=== PATIENT | male | born 1990 | race Hispanic/Latino ===

== ENCOUNTER 2025-01-31 21:37 | Emergency (ER) | payer SELFPAY ==
[~2025-01-31] VITALS: Ht 193 cm; Wt 87.5 kg
[2025-01-31 22:22] LABS: IMMATURE GRANULOCYTE ABSOLUTE 0.02 K/uL (0-1); NUCLEATED RED BLOOD CELLS 0.0 % (0.0-0.19); PLATELET COUNT (AUTO) 327 K/uL (130-400); RED BLOOD CELL COUNT(AUTO) 5.34 MIL/uL (4.50-6.20); RED CELL DISTRIBUTION WIDTH 12.5 % (11.0-15.5); WHITE BLOOD COUNT (AUTO) 11.1 K/uL (4.8-10.8)
[2025-01-31 22:24] LABS: APPEARANCE,URINE CLEAR (CLEAR); GLUCOSE, URINE (UA) NEGATIVE (NEGATIVE); LEUKOCYTE ESTERASE ,URINE NEGATIVE Leu/uL (NEGATIVE); NITRATE,URINE NEGATIVE (NEGATIVE); OCCULT BLOOD,URINE NEGATIVE (NEGATIVE)
[2025-01-31 22:25] LABS: ADD UA MICROSCOPIC NO
[2025-01-31 22:36] LABS: CREATININE 1.1 mg/dL (0.5-1.3); GLOMERULAR FILTR. RATE CALC 89.0 mL/min (>90); GLUCOSE,RANDOM 78.0 mg/dL (70-105); SODIUM SERUM 144.0 mmol/L (136-145); UREA NITROGEN, BLOOD 9.0 mg/dL (7-18)
[2025-01-31 22:37] LABS: INR 1.0 (0.85-1.15)
[2025-01-31 22:42] LABS: ALCOHOL, BLOOD 57.0 mg/dL (0-10); ASPARTATE AMINOTRANSFERASE 26.0 U/L (10-37); CREATINE KINASE, TOTAL 127.0 U/L (21-232); TOTAL PROTEIN, SERUM 7.9 g/dL (6.0-8.3)
[2025-01-31] MEDS ORDERED: IOHEXOL-350 75 ML VIAL IV ONE (23:08)
[2025-01-31] MEDS: LACTATED RINGERS 1000ML 1,000 ML IV ONE (23:08)
--- NOTE | 2025-01-31 23:37 | HMCIMG ---
EXAM: CT Head Without IV contrast. CLINICAL HISTORY: Patient presents with a headache. TECHNIQUE: Axial computed tomography images of the head/brain without intravenous contrast. COMPARISON: None provided. FINDINGS: BRAIN: No evidence of acute hemorrhage, mass lesion, or acute territorial infarct. No midline shift or extra-axial collections. VENTRICLES: No hydrocephalus. ORBITS: The orbits are unremarkable. SINUSES AND MASTOIDS: Mucosal disease in the left maxillary, left sphenoid, and bilateral frontal sinuses. The remaining visualised paranasal sinuses and mastoid air cells are clear. BONES: No fracture. SOFT TISSUES: Unremarkable. IMPRESSION: No acute intracranial abnormality. /[place]
--- NOTE | 2025-02-01 | HMCIMG ---
EXAM: CT Abdomen and Pelvis with IV contrast. CLINICAL HISTORY: Pain. TECHNIQUE: Thin collimated axial CT images of the abdomen and pelvis were obtained, with sagittal and coronal reformatted images also submitted. A CT scan is done according to ALARA (As Low As Reasonably Achievable). COMPARISON: None. FINDINGS: Unremarkable visualized lung parenchyma. There is no focal abnormality appreciated within the liver, gallbladder, pancreas, spleen, adrenals, or kidneys. There is no obvious bowel wall thickening. Bowel loops are normal in caliber without evidence of obstruction or ileus. The appendix is unremarkable. There is no abnormality within the urinary bladder. Unremarkable reproductive organs. No lymphadenopathy. No free fluid. No pneumoperitoneum. No gross abnormality in the abdominal vessels. There is no acute osseous abnormality. IMPRESSIONS: No acute process in the abdomen or pelvis. /[place]
--- NOTE | 2025-02-01 00:24 | ERN ---
General Chief Complaint: Hematemesis/Vomiting Blood Stated Complaint: C/O VOMITING BLOOD WITH HEADACHE Time Seen by MD: 21:39 History of Present Illness Initial Comments 34-year-old male presents for headache and hematemesis. Patient reports that earlier today he began having a headache. Afterwards he vomited a couple of times. He reports that there was bright red blood in the vomit. Denies any abdominal pain or melena. Denies any GI symptoms. He has otherwise been in his normal state of health. He denies any medical conditions. Does report that he has a very heavy daily drinker. Allergies: Coded Allergies: No Known Allergies (Unverified Allergy, Unknown, 01/31/25) Past Medical History Past Medical History: No Pertinent History Past Surgical History: None ROS Dictation CONSTITUTIONAL: No chills, no fever, no weakness, no diaphoresis, no malaise. HEAD/FACE: No signs of trauma. EENT: No eye pain, no blurred vision, no tearing, no double vision, no ear pain, no ear discharge, no nose pain, no nasal congestion, no throat pain, no throat swelling, no mouth pain. RESPIRATORY: No cough, no orthopnea, no SOB, no stridor, no wheezing. CARDIOVASCULAR: No chest pain, no edema, no palpitations, no syncope. GASTROINTESTINAL/ABDOMINAL: Hematemesis GENITOURINARY: No abnormal discharge, no dysuria, no frequent urination, no hematuria. No complaints of pain in the genitals. MUSCULOSKELETAL: No back pain, no gout, no joint pain, no joint swelling, no muscle pain, no muscle stiffness, no neck pain. INTEGUMENTARY: No change in color, no change in hair/nails, no dryness, no lesion, no lumps, no rash. NEUROLOGICAL/PSYCH: No anxiety, not depressed, no emotional problem, no headache, no numbness, no pre-existing deficit, no history of seizures, no tremors, no weakness. HEMATOLOGIC/LYMPHATIC: Not anemic, no history of blood clots, no apparent bleeding, no bruising, glands not swollen. All Systems Negative, Except as Noted. Physical Exam Physical Exam Dictation VITAL SIGNS: Reviewed. GENERAL APPEARANCE: Alert, oriented x3, no acute distress. HEAD AND FACE: Non-traumatic. EYES: PERRL, pink conjunctivas, eyelid no trauma, anterior chamber clear. EARS: Pinnas intact and no signs of trauma or erythema. Ear canals clear and no discharge. TMs no erythema. NOSE: No discharge, no bleeding. OROPHARYNX: Mouth normal, teeth no caries, tongue pink. Pharynx clear, no erythema. Tonsils no exudates, no abscesses noted. Mucous membrane moist. NECK: Supple, non-tender, no thyromegaly, no masses, no JVD, no bruits. BREAST: Deferred. CHEST: No tenderness, no crepitus, no paradoxical movement, no retractions. LUNGS: Clear, well-ventilated, symmetric, no rales, no wheezing, no rhonchi, no stridor, good breath sounds bilaterally. HEART: Regular rate, regular rhythm, no murmur, no gallops. VASCULAR: No peripheral edema. ABDOMEN: Soft, positive bowel sounds, nondistended, no guarding, nontender, no rebound, no masses no hepatomegaly, no splenomegaly, no Real's sign, no hernias. RECTAL: Deferred. GENITAL: Deferred. NEUROLOGICAL: Normal speech, gross motor function intact, gross sensory function intact. MUSCULOSKELETAL: Neck nontender, full range of motion, back nontender, full range of motion. EXTREMITIES: Nontender, full range of motion. SKIN: Color pink, dry, no turgor, no rash, no lacerations, no abrasions, no contusions. LYMPHATICS: Deferred. Results Laboratory and Microbiology Lab and Micro Result Laboratory Tests Test 01/31/25 22:12 White Blood Count 11.1 K/uL (4.8-10.8) H Red Blood Count 5.34 MIL/uL (4.50-6.20) Hemoglobin 15.8 g/dL (14.0-18.0) Hematocrit 46.1 % (42-54) Mean Corpuscular Volume 86.3 fL (79-99) Mean Corpuscular Hemoglobin 29.6 pg (27.0-33.0) Mean Corpuscular Hemoglobin Concent 34.3 g/dL (32.0-36.0) Red Cell Distribution Width 12.5 % (11.0-15.5) Platelet Count 327 K/uL (130-400) Mean Platelet Volume 9.6 fL (7.5-10.5) Immature Granulocyte % (Auto) 0.2 % (0-1) Neutrophils (%) (Auto) 74.5 % (40.0-77.0) Lymphocytes (%) (Auto) 15.4 % (21.0-51.0) L Monocytes (%) (Auto) 8.6 % (3.0-13.0) Eosinophils (%) (Auto) 1.0 % (0.0-8.0) Basophils (%) (Auto) 0.3 % (0.0-5.0) Neutrophils # (Auto) 8.3 K/uL (1.8-7.7) H Lymphocytes # (Auto) 1.7 K/uL (1.0-4.8) Monocytes # (Auto) 1.0 K/uL (0.1-1.0) Eosinophils # (Auto) 0.11 K/uL (0.00-0.70) Basophils # (Auto) 0.03 K/uL (0.00-0.20) Absolute Immature Granulocyte (auto 0.02 K/uL (0-1) Nucleated Red Blood Cells 0.0 % (0.0-0.19) Prothrombin Time 10.6 SEC (9.6-11.6) Prothromb Time International Ratio 1.00 (0.85-1.15) Activated Partial Thromboplast Time 28.5 SEC (26.3-35.5) Urine Color COLORLESS (YELLOW) Urine Appearance CLEAR (CLEAR) Urine pH 6.5 (5.0-8.0) Urine Specific [place] 1.005 (1.001-1.031) Urine Protein NEGATIVE mg/dL (NEGATIVE) Urine Glucose (UA) NEGATIVE mg/dL (NEGATIVE) Urine Ketones NEGATIVE mg/dL (NEGATIVE) Urine Occult Blood NEGATIVE (NEGATIVE) Urine Nitrate NEGATIVE (NEGATIVE) Urine Bilirubin NEGATIVE mg/dL (NEGATIVE) Urine Urobilinogen 0.2 mg/dL (0.2-1.0) Urine Leukocyte Esterase NEGATIVE Andrew/uL Sodium Level 144 mmol/L (136-145) Potassium Level 3.7 mmol/L (3.5-5.1) Chloride Level 103 mmol/L (101-111) Carbon Dioxide Level 31 mmol/L (21-32) Blood Urea Nitrogen 9 mg/dL (7-18) Creatinine 1.1 mg/dL (0.5-1.3) Glomerular Filtration Rate Calc 89 mL/min (>90) Random Glucose 78 mg/dL (70-105) Total Calcium 8.8 mg/dL (8.5-10.1) Total Bilirubin 0.6 mg/dL (0.2-1.0) Direct Bilirubin 0.1 mg/dL (0.0-0.3) Aspartate Amino Transf (AST/SGOT) 26 U/L (10-37) Alanine Aminotransferase (ALT/SGPT) 56 U/L (12-78) Alkaline Phosphatase 77 U/L (50-136) Total Creatine Kinase 127 U/L (21-232) Troponin I High Sensitivity 6.8 ng/L (4-75) Total Protein 7.9 g/dL (6.0-8.3) Albumin 4.3 g/dL (3.5-5.0) Serum Alcohol 57 mg/dL (0-10) H MDM CC: Headache and hematemesis Historian: Patient Comorbidities: Heavy alcohol user Limitations by social determinants of health: Uninsured Differential diagnosis: Anemia, GI bleed, viral syndrome, other Clinical exam shows soft nontender nondistended abdomen. He is nontoxic in appearance. Vital signs show mild hypertension but are otherwise stable. Remained stable h ere in the ER. Labs show no leukocytosis, no anemia, coags are normal. Liver enzymes normal. Electrolytes normal. Troponin and CK are normal. Urinalysis unremarkable. It is still going to alcohol 57 CT head is unremarkable CT abdomen and pelvis are unremarkable Patient received IV fluids, Toradol, Tylenol here in the ER. Very low suspicion for any life threats. He is not anemic. He is not actively vomiting he has had no melena and no abdominal discomfort. Does not have any history of liver disease. His labs vital signs imaging are unremarkable. Patient possibly has a an ulcer. We will start on Protonix, recommend d ecreasing alcohol use, recommend PCP follow up. ED Course Orders Procedure Category Date Status Time Alcohol, Blood LAB 01/31/25 Complete 21:51 Cardiac Panel LAB 01/31/25 Complete 21:51 Cbc With Differential LAB 01/31/25 Complete 21:51 Basic Metabolic Panel LAB 01/31/25 Complete 21:51 Prothrombin Time With LAB 01/31/25 Complete INR 21:51 Partial LAB 01/31/25 Complete Thromboplastin Time 21:51 Urinalysis Profile LAB 01/31/25 Complete 21:51 Type And Screen BBK 01/31/25 Complete 21:51 Hepatic Function Panel LAB 01/31/25 Complete 21:51 Acetaminophen 325 Tab PHA 01/31/25 Complete (Tylenol 325mg Tab 22:30 Lactated Ringers PHA 01/31/25 Complete 1000ml (Lactated 23:00 Ketorolac PHA 01/31/25 Complete Tromethamine 15mg/Ml 23:00 Influenza Type A & B, LAB 01/31/25 In Process Rapid 22:58 Covid19 (Sars Antigen LAB 01/31/25 In Process Rapid) 22:58 Ct Head/Brain W/O CT 01/31/25 Resulted Contrast 22:58 Ct Abdomen/Pelvis CT 01/31/25 Resulted W/Contrast 22:58 Iohexol (Omnipaque) PHA 01/31/25 Complete 23:08 Current Medications Medications (Trade) Dose Ordered Sig/Jamaal Route PRN Reason Start Time Stop Time Status Last Admin Dose Admin Acetaminophen (TYLenol 325MG TAB) 650 mg ONCE ONCE PO 01/31/25 22:30 01/31/25 22:31 DC 01/31/25 22:37 Iohexol (Omnipaque) 75 ml STK-MED ONCE IV 01/31/25 23:08 01/31/25 23:08 DC Ketorolac Tromethamine (toRADol) 15 mg ONCE ONCE IV 01/31/25 23:00 01/31/25 23:01 DC 01/31/25 23:08 Lactated Ringer's 1,000 ml @ 0 mls/hr ONCE ONCE IV 01/31/25 23:00 01/31/25 23:01 DC 01/31/25 23:08 Vital Signs Date Time Temp Pulse Resp B/P (MAP) Pulse Ox O2 Delivery O2 Flow Rate FiO2 01/31/25 23:00 98.8 85 18 148/91 97 Room Air* 0 21 01/31/25 21:59 98.8 105 20 142/64 97 Room Air* 0 21 01/31/25 21:40 98.2 99 20 154/99 100 Room Air DX & DISP Disposition: Discharge Departure Impression: Primary Impression: Hematemesis Additional Impression: Headache Condition: Stable Assign Patient to: Your workup was relatively unremarkable today. As we discussed, you may have an ulcer or gastritis. The CT imaging of your head, abdomen, and pelvis is unremarkable. Your blood work (CBC with differential, metabolic panel, liver enzymes, lipase, troponin, CK, urinalysis) is unremarkable. I have prescribed omeprazole. Take once daily for the next 20 days. Reduce alcohol intake. Avoid NSAIDs such as ibuprofen and naproxen. Avoid caffeine, spicy foods, heavy meals, and eating late at night. Please follow up with the primary doctor. You may need further studies. Return to the emergency department as needed. Scripts Omeprazole (Omeprazole) 20 Mg Tab.rap.dr 1 TAB PO DAILY for 20 Days, #20 TAB 0 Refills Prov: PATRICK GRIDER DO 02/01/25 Referrals: SELF,REFERRAL (PCP) PATRICK GRIDER DO Feb 01, 2025 00:24
[2025-02-01] MEDS ORDERED: OMEP-420 PO (00:29)
[2025-02-01 00:38] LABS: COVID19 (SARS ANTIGEN RAPID) PRESUMPTIVE NEGATIVE (NEGATIVE); INFLUENZA TYPE A Negative For Type A (NEGATIVE); INFLUENZA TYPE B Negative For Type B (NEGATIVE)
[2025-02-01 00:44] VITALS: BP 128/78; PULSE 81; RESP 18; TEMP 98.8; O2SAT 97
== END 2025-02-01 00:52 | disposition home or self-care (01) ==
LOC: EDH 21:37
DX: K92.0 Hematemesis (principal); R51.9 Headache, unspecified; Z20.822 Contact with and (suspected) exposure to COVID-19
CPT/HCPCS: 99285; 70450; 96374; 96361; 87426; 82550; 80076; 84484; 80048; 85025; 85610; 85730; 86850; 86900; 86901; 87804 ×2; 81003; 36415; 74177; J1885; J7120; Q9967